=== PATIENT | male | born 1945 | race Caucasian/White ===

== ENCOUNTER 2024-01-26 21:15 | Emergency (ER) | payer MEDICARE, SELFPAY ==
[2024-01-26] VITALS (9 sets, daily range): BP systolic 92–143; BP diastolic 60–93; PULSE 60–80; BMI 33.2
--- NOTE | 2024-01-26 21:39 | ED.GENMED ---
History of Present Illness
General
Chief Complaint: Blood Pressure Problem
Time Seen by Provider: 01/26/24 21:28
Travel History
Have you had any contact with someone who has COVID-19?: No
Do you have any symptoms of coronavirus? Fever > 100 degrees, chills, cough, shortness of breath, sore throat, loss of taste or smell, muscle aches, or headache?: No
History of Present Illness
History of Present Illness:
78-year-old male with history of hypertension and chronic back pain presents to the emergency department for a witnessed near syncopal event. 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
'get some air' he felt profoundly lightheaded and fell to the ground. EMS reported that his BP was as low as 70/40 prehospital has received 150 cc of fluid thus far. He is on chronic opioids for his back pain. Reports that he did not drink much
fluid today
Review of Systems
Review of Systems
Allergies reviewed?: Yes
All Other Systems: ROS reviewed and negative except as documented in HPI and ROS
Phy Exam
Physical Exam
Physical Exam:
GEN: Well appearing, NAD, WDWN
HEENT: Oral mucosa moist, no scleral icterus
Cardiac: Regular rate and rhythm, no murmurs
Lung: No respiratory distress, no tachypnea, lungs clear to auscultation bilaterally
MSK: No gross deformity or injuries
Skin: Good color, no pallor or jaundice, no rashes
Neuro: AO x3, moves all extremities freely
Psych: Calm, cooperative
Course
Orders/Labs/Results
Orders:
Orders
01/26/24 21:30
Electrocardiogram (*1) Urgent
Reason for Study: Chest Pain
Cardiac Monitoring- Treatment ONCE
EKG- Treatment ONCE
IV Insert/Care/Rem.- Treatment PRN
O2 Therapy [RESP] Urgent
Titrate/Wean O2 to maintain O2 sat greater than (%): 90
Special Instructions: Maintain sats >/=90%
Pulse Ox/spot Check [RESP] Urgent
Quantity: 1
Special Instructions: ON ROOM AIR
01/26/24 21:33
Basic Metabolic Panel Urgent
Complete Blood Count/With Diff Urgent
Troponin I Urgent
01/26/24 21:45
0.9% Sodium Chloride 1000 ml [Nss] 1,000 ml IV BOLUS
Abnormal Lab Results
01/26/24
21:33
MPV 12.4 H fL
(7.4-10.4)
Absolute Monos (auto) 0.7 H 10^3/uL
(0.1-0.6)
Lymphocytes % 19.4 L %
(20.5-51.1)
Sodium 133 L mmol/L
(135-145)
BUN 34 H mg/dl
(9-20)
Creatinine 1.7 H mg/dL
(0.7-1.3)
Glucose 127 H mg/dl
(70-99)
01/26/24 21:33
01/26/24 21:33
Vital Signs
Initial and Last Documented VS:
Initial Vital Signs
Pulse Resp BP
62 16 92/63
01/26/24 21:21 01/26/24 21:21 01/26/24 21:21
Last Documented Vital Signs
Temp Pulse Resp BP Pulse Ox
97.9 F 62 18 125/73 98
01/26/24 21:52 01/26/24 23:56 01/26/24 23:56 01/26/24 23:56 01/26/24 23:56
MDM/Problems Addressed
MDM/Problems Addressed:
78-year-old male presents after a likely vasovagal event. His blood pressure was in the low on arrival however improved with IV fluids. He is not orthostatic and labs are otherwise reassuring. He does have mild elevated BUN and creatinine,
uncertain if chronic or acute. He does note that he drinks essentially no water on a daily basis which is likely contributory. Recommend he talk to his primary care physician about his kidney function labs, otherwise stable and suitable for
discharge
*Critical Care Note
Total Time (30-74mins, 75-104mins- exclusive of procedures): Not Applicable
ED Attending Note
-
Portions of this chart may have been created with voice recognition software.� Occasional wrong word or��sound alike� substitutions may have occurred due to the inherent limitations of voice recognition software.
Discharge Plan
Departure
Patient Disposition: Home (Routine Discharge)
Date of Disposition: 01/26/24
Time of Disposition: 23:42
Patient with high blood pressure during this ER visit?: No
Discharge Problem:
Near syncope
Instructions: Vasovagal Response (DC)
Referrals:
Leyla Michel MD [Family Provider] -
Activity Restrictions/Additional Instructions:
Your kidney function was slightly abnormal on your blood work. This could be indicative of chronic kidney disease or acute dehydration. Please follow-up with your primary care physician to review the labs from this visit to determine if this was
acute or chronic, labs are included with your paperwork
Interventions
Interventions:
*Risk Screen - Suicide Last Done: 01/26/24 21:53
*General Assessment Last Done: 01/26/24 21:53
*Neglect/Abuse Screening Last Done: 01/26/24 21:53
ED- Fall Risk Assessment Last Done: 01/26/24 23:30
*ED COVID-19 Vaccine History Last Done: 01/26/24 21:28
*Nursing Disposition Last Done: 01/26/24 23:56
ED- Cardiac Assessment Last Done: 01/26/24 21:54
ED- Neurological Assessment Last Done: 01/26/24 21:41
ED- Pulmonary Assessment Last Done: 01/26/24 21:41
Discharge Date and Time
Discharge Date/Time: 01/26/24 23:58
Print Language: UKRAINIAN
[2024-01-26 21:43] LABS: % Basophils 0.5 % (0-2); % Immature Granulocytes 0.4 % (0-0.5); % Lymphocytes 19.4 % (20.5-51.1); % Monocytes 8.1 % (1.7-9.3); % Neutrophils 69.6 % (42.2-75.2); Absolute Basophils 0.1 10^3/uL (0-0.2); Absolute Eosinophils 0.2 10^3/uL (0-0.7); Absolute Lymphocytes 1.8 10^3/uL (1.2-3.4); Absolute Monocytes 0.7 10^3/uL (0.1-0.6); Absolute Neutrophils 6.4 10^3/uL (1.4-6.5); Hematocrit 42.1 % (39.0-52.0); Hemoglobin 14.1 g/dL (13.0-18.0); Mean Corp Hgb Conc. 33.5 g/dL (33.0-37.0); Mean Corpuscular Hgb 29.6 pg (27.0-31.0); Mean Corpuscular Volume 88.3 fL (80.0-94.0); Mean Platelet Volume 12.4 fL (7.4-10.4); Nucleated Red Blood Cells % 0 % (-); Platelet Count 188 10^3/uL (130-400); Red Blood Cell Count 4.77 10^6/uL (4.70-6.10); Red Cell Dist. Width 13.1 % (11.5-14.5); White Blood Cell Count 9.2 10^3/uL (4.8-10.8)
[2024-01-26] MEDS: NSS 1000 IV (21:46)
[2024-01-26 22:13] LABS: Blood Urea Nitrogen 34 mg/dl (9-20); Calcium 9.1 mg/dl (8.4-10.2); Carbon Dioxide 22 mmol/L (22-30); Chloride 103 mmol/L (98-107); Estimated Creatinine Clearance 45 ml/min; Glucose 127 mg/dl (70-99); Sodium 133 mmol/L (135-145); Troponin I < 0.012 ng/ml; eGFR 41.26
== END 2024-01-26 23:58 | disposition home or self-care (01) ==
LOC: EMR 21:15
PROVIDERS: EMERGENCY PHYSICIAN Emergency Medicine; FAMILY PHYSICIAN Obstetrics & Gynecology
DX: R55 Syncope and collapse (principal); G89.29 Other chronic pain; I10 Essential (primary) hypertension
CPT/HCPCS: 99283; 96360; 80048; 84484; 85025; 93005